=== PATIENT | female | born 1965 ===

== ENCOUNTER 2018-05-18 09:40 | Emergency (ER) | payer SELFPAY ==
[2018-05-18 09:49] VITALS: TEMP 97.8
[2018-05-18] MEDS ORDERED: Bacitracin 500 Units/gm Oint Foilpak UD ONE (09:53)
[2018-05-18] MEDS ORDERED: Tdap Vaccine 0.5 ml Vial (10-64 yrs) IM ONE ×2 (09:57→10:09)
[2018-05-18] MEDS ORDERED: Epinephrine /Lidocaine HCL 1:100,000/2% 30 ml INJ STA (09:57)
[2018-05-18] MEDS ORDERED: Naproxen 550 mg Tab PO STA (09:58)
[2018-05-18] MEDS ORDERED: Naproxen 550 mg Tab PO ONE (10:09)
--- NOTE | 2018-05-18 10:19 | RAD ---
Date of service: 05/18/2018 PROCEDURE: Right Knee Radiographs. HISTORY: trauma COMPARISON: None. FINDINGS: BONES: Minimal medial knee joint line tibial plateau spurring No fracture. JOINTS: Minimal medial femoral tibial joint space narrowing- mild degenerative arthrosis inferred. Similar status for the patellar femoral joint JOINT EFFUSION: None. OTHER FINDINGS: None. IMPRESSION: No fracture. Minimal-mild degenerative changes -as above.
--- NOTE | 2018-05-18 10:21 | RAD ---
PROCEDURE: Bilateral hand radiographs. HISTORY: trauma COMPARISON: None. FINDINGS: BONES: Right Hand: No erosions. Left Hand: No erosions. JOINTS: Right Hand: Minimal diffuse mostly distal interphalangeal joint space narrowing Left Hand: Same is right hand SOFT TISSUES: Right Hand: Normal. Left Hand: Normal. OTHER FINDINGS: None. IMPRESSION: Minimal degenerative joint space narrowing of all distal interphalangeal joints within each hand. No erosions. No prominent spurring
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
[2018-05-18 11:45] VITALS: BP 156/81; PULSE 47; RESP 18
[2018-05-18 11:47] VITALS: O2SAT 98
== END 2018-05-18 11:44 | disposition home or self-care (01) ==
LOC: C.ER 09:40
DX: S61.412A Laceration without foreign body of left hand, initial encounter (principal); V98.8XXA Other specified transport accidents, initial encounter

== ENCOUNTER 2019-01-18 14:09 | Outpatient (CLI) | payer SELFPAY | END 2019-01-18 14:10 | disposition home or self-care (01) | LOC: C.LAB 14:09 | DX: R10.9 Unspecified abdominal pain (principal); I10 Essential (primary) hypertension; E03.9 Hypothyroidism, unspecified; E78.00 Pure hypercholesterolemia, unspecified; N39.0 Urinary tract infection, site not specified; M32.0 Drug-induced systemic lupus erythematosus ==

== ENCOUNTER 2019-02-03 12:59 | Outpatient (CLI) | payer OTHER | END 2019-02-03 13:00 | disposition home or self-care (01) | LOC: C.LAB 12:59 | DX: M06.9 Rheumatoid arthritis, unspecified (principal); M32.9 Systemic lupus erythematosus, unspecified; M10.9 Gout, unspecified ==

== ENCOUNTER 2019-02-10 08:40 | Outpatient (CLI) | payer OTHER | END 2019-02-10 08:41 | disposition home or self-care (01) | LOC: C.MAMMO 08:41 | DX: Z12.31 Encounter for screening mammogram for malignant neoplasm of breast (principal) ==